=== PATIENT | female | born 1995 | race Caucasian/White ===

== ENCOUNTER 2020-04-02 01:35 | Inpatient (IN) | payer OTHER ==
[2020-04-02 03:11] LABS: HCT 34.8 % (37.0-47.0); HGB 11.8 g/dl (12.5-16.0); MCH 29.6 pg (25.0-31.0); MCHC 33.9 g/dL (32.0-36.0); MCV 87.4 fL (78.0-100.0); MPV 10.5 fL (6.0-9.5); RBC 3.98 M/uL (4.20-5.40); RDW 12.5 % (11.5-14.0); WBC 10.1 K/uL (4.0-10.5)
[2020-04-02 04:45] LABS: BILIRUBIN NEGATIVE (NEGATIVE); BLOOD NEGATIVE Ery/uL (NEGATIVE); CLARITY CLEAR (CLEAR); COLOR YELLOW (YELLOW); GLUCOSE (U) NORMAL (NORMAL); LEUKOCYTES NEGATIVE Leu/uL (NEGATIVE); NITRITE NEGATIVE (NEGATIVE); PROTEIN TRACE (LOW) mg/dL (NEGATIVE); SPECIFIC GRAVITY 1.025 (1.001-1.030); UROBILINOGEN 0.2 mg/dL (0.2-1.0)
[2020-04-02 04:48] LABS: MUCOUS TRACE; SQUAMOUS EPITHELIAL CELLS RARE; URINARY RBC RARE
[2020-04-03 06:23] LABS: HCT 24.6 % (37.0-47.0); MCH 29.2 pg (25.0-31.0); MCHC 32.5 g/dL (32.0-36.0); MCV 89.8 fL (78.0-100.0); MPV 10.1 fL (6.0-9.5); RBC 2.74 M/uL (4.20-5.40); RDW 12.9 % (11.5-14.0); WBC 9.5 K/uL (4.0-10.5)
== END 2020-04-04 12:48 | disposition home or self-care (01) | DRG 806 ==
LOC: FOD 01:35 → FOB 01:36 → FOD 02:41 → FOB 02:42
PROVIDERS: ADMIT Obstetrics & Gynecology
PROC: 10E0XZZ Delivery of Products of Conception, External Approach (ICD-10-PCS; principal; 2020-04-02)
PROC: 4A1HX4Z Monitoring of Products of Conception, Cardiac Electrical Activity, External Approach (ICD-10-PCS; 2020-04-02)
DX: O99.214 Obesity complicating childbirth (principal); D62 Acute posthemorrhagic anemia; Z37.0 Single live birth; E66.9 Obesity, unspecified; O69.1XX0 Labor and delivery complicated by cord around neck, with compression, not applicable or unspecified; Z3A.38 38 weeks gestation of pregnancy; O90.81 Anemia of the puerperium; O45.8X3 Other premature separation of placenta, third trimester; Z20.828 Contact with and (suspected) exposure to other viral communicable diseases; Z79.899 Other long term (current) drug therapy
CPT/HCPCS: 36415; 81001; 84112; J2916; J7120; U0002